=== PATIENT | female | born 1940 | race Asian ===

== ENCOUNTER 2017-11-17 15:51 | Emergency (ER) | payer OTHER ==
[~2017-11-17] VITALS: Ht 152.4 cm; Wt 53.1 kg
[~2017-11-17 15:51] MED LIST: ASPIR 8181 MG PO; ATORVASTATIN CA20 M1; ATORVASTATIN CA20 M1 PO; CATAPRES0.1 MG; CATAPRES0.1 MG PO; COZAAR50 M1; COZAAR50 M1 PO; METOPROLOL TART25 M1 PO; RISACAL-D1 TAB PO
[2017-11-17 15:55] VITALS: Ht 152.4 cm; Wt 53.1 kg
[2017-11-17 16:40] LABS: BASOPHIL % 0.7 % (0-2); PLATELET COUNT 227 x10^3mcL (130-400)
[2017-11-17 16:44] LABS: RED CELL DISTRIBUTION WIDTH 15.3 % (11.5-14.5)
[2017-11-17 16:49] LABS: CALCIUM 8.5 mg/dL (8.5-10.1); CARBON DIOXIDE 31.2 mmol/L (21-32); CHLORIDE SERUM 104 mmol/L (98-107); CREATININE SERUM 0.8 mg/dL (0.6-1.0); GLUCOSE SERUM 123 mg/dL (74-106); POTASSIUM SERUM 3.8 mmol/L (3.5-5.1); SODIUM SERUM 139 mmol/L (136-145)
[2017-11-17 16:51] LABS: ALBUMIN 3.8 g/dL (3.4-5.0); ALKALINE PHOSPHATASE 52 U/L (46-116); ALT/SGPT 25 U/L (14-59); AST/SGOT 25 U/L (15-37); BILIRUBIN TOTAL 0.46 mg/dL (0.20-1.00); MAGNESIUM 1.9 mg/dL (1.8-2.4); TOTAL PROTEIN, SERUM 6.8 g/dL (6.4-8.2)
[2017-11-17 16:54] LABS: CHOLESTEROL 128 mg/dL (<200); HDL CHOLESTEROL 61 mg/dL (40-60)
[2017-11-17 18:14] VITALS: BP 133/70
== END 2017-11-17 18:14 | disposition home or self-care (01) ==
LOC: ED 15:51
PROVIDERS: Emergency Medicine
DX: R51 Headache (principal); R42 Dizziness and giddiness; M79.645 Pain in left finger(s); I10 Essential (primary) hypertension; E78.00 Pure hypercholesterolemia, unspecified; Z88.1 Allergy status to other antibiotic agents
CPT/HCPCS: 36415; 83880; Q0092